=== PATIENT | male | born 1990 | race Caucasian/White ===

== ENCOUNTER 2017-03-15 08:16 | Emergency (ER) | payer SELFPAY ==
[~2017-03-15] VITALS: Ht 175.3 cm; Wt 93.4 kg
[2017-03-15 08:27] VITALS: BP 144/83
== END 2017-03-15 11:08 | disposition home or self-care (01) ==
LOC: ED 08:16
DX: S93.401A Sprain of unspecified ligament of right ankle, initial encounter (principal); W50.0XXA Accidental hit or strike by another person, initial encounter; Y93.89 Activity, other specified; Y99.8 Other external cause status; Y92.89 Other specified places as the place of occurrence of the external cause